=== PATIENT | female | born 2000 ===

== ENCOUNTER 2023-01-17 04:08 | Emergency (ER) | payer BC, SELFPAY ==
[2023-01-17] MEDS ORDERED: Mag-Al Plus 1200 MG/1200 MG/120 MG/30 ML UDCUP ONE (04:42)
== END 2023-01-17 05:25 | disposition home or self-care (01) ==
LOC: CSHERS 04:08
DX: R07.2 Precordial pain (principal); K29.70 Gastritis, unspecified, without bleeding
CPT/HCPCS: 71045; 93005